=== PATIENT | male | born 1970 | race Caucasian/White ===

== ENCOUNTER 2017-05-09 02:22 | Emergency (ER) | payer OTHER ==
[~2017-05-09] VITALS: Ht 167.6 cm; Wt 81.6 kg
--- NOTE | 2017-05-09 03:22 | Diagnostic Imaging Report ---
EXAM: KNEE RIGHT THREE VIEWS, AP, lateral and oblique DATE: 05/09/2017 2:41 AM Time stamp on exam: [id number] hours INDICATION: Knee popped out of place 2 years ago, right knee pain COMPARISON: None FINDINGS: BONES: No acute fractures. Surgical changes of ligamentous repair. JOINTS: No malalignment. SOFT TISSUES: Normal IMPRESSION: No fracture or dislocation of the right knee. Signed by: Dr. Genny Browne M.D. on 05/09/2017 3:18 AM
== END 2017-05-09 03:55 | disposition home or self-care (01) ==
LOC: ER 02:22
DX: M23.51 Chronic instability of knee, right knee (principal); G89.29 Other chronic pain
CPT/HCPCS: 99283